=== PATIENT | female | born 1960 | race Caucasian/White ===

== ENCOUNTER 2016-09-05 20:01 | Emergency (ER) | payer OTHER ==
[~2016-09-05] VITALS: Ht 157.5 cm; Wt 87.1 kg
--- NOTE | 2016-09-05 20:25 | ED CARDIAC/CP/PALPITATIONS ---
History of Present Illness General Chief Complaint: Palpitations Stated Complaint: PALPITATIONS Source: patient Exam Limitations: no limitations Vital Signs & Intake/Output Vital Signs & Intake/Output Vital Signs Date Time Temp Pulse Resp B/P Pulse O2 O2 Flow FiO2 Ox Delivery Rate 09/05 2110 101.5 104 20 171/84 98 Room Air Room Air 09/05 2002 101.1 102 18 172/83 94 Room Air Allergies Coded Allergies: NO KNOWN ALLERGIES (09/05/16) Reconcile Medications Oseltamivir Phosphate (Tamiflu) 75 MG CAPSULE 1 CAP PO BID INFLUENZA Oseltamivir Phosphate (Tamiflu) 75 MG CAPSULE 1 CAP PO BID INFLUENZA Triage Note: PT TO TRIAGE WITH C/O PALPITATIONS AND HEADACHE SINCE 6PM. PT HAS BEEN SICK WITH COLD AND CONGESTION x2DAYS, PT TOOK HER COLD MEDS BEFORE SYMPTOMS STARTED. TEMP 101.1 IN TRIAGE. PT DENIES CHEST PAIN, DENIES SOB. [facility] TO [facility] FOR E[facility]. Triage Nurses Notes Reviewed? yes Onset: Abrupt Duration: day(s): (1) Timing: multiple episodes today Quality/Severity: moderate Location: central Activities at Onset: none Associated Symptoms: COUGH, CONGESTION, PALPITATIONS HPI: This is a 56-year-old female presents to the ER for chief complaint of cough, congestion generally not feeling well and noticed that her heart was racing. She still complained of some central chest tightness. Positive productive cough. She didn't realize she had a fever until she got emergency department with the temp is 101. Sick contacts of last few weeks. She is up-to-date day with her flu vaccine. Denies any abdominal pain nausea vomiting or diarrhea. Denies any rash or symptoms. She did not take anything for fever at home today. Past History Travel History Traveled to [place] past 21 day No Medical History Any Pertinent Medical History? see below for history Neurological: migraine Cardiovascular: hypertension Surgical History Surgical History: , TONSILLECTOMY Psychosocial History What is your primary language Peruvian Tobacco Use: Never used Family History Hx Contributory? No Review of Systems Review of Systems Constitutional: Reports: chills, fever, malaise, weakness. EENTM: Reports: no symptoms. Respiratory: Reports: cough, sputum production. Cardiovascular: Reports: palpitations. Denies: chest pain. GI: Denies: abdominal pain, diarrhea, vomiting. Genitourinary: Reports: no symptoms. Musculoskeletal: Reports: no symptoms. Skin: Reports: no symptoms. Neurological/Psychological: Reports: no symptoms. Hematologic/Endocrine: Denies: bruising, bleeding, polyuria, polydipsia. Immunologic/Allergic: Denies: splenectomy. All Other Systems: Reviewed and Negative Physical Exam Physical Exam General Appearance: well developed/nourished, alert, awake Head: atraumatic, normal appearance Eyes: Bilateral: normal appearance, PERRL, EOMI. Ears, Nose, Throat: normal pharynx, normal ENT inspection, hearing grossly normal Neck: normal inspection Respiratory: normal breath sounds Cardiovascular: regular rate/rhythm, MULTIPLE EARLY BEATS Peripheral Pulses: 2+ radial (R), 2+ radial (L) Gastrointestinal: normal bowel sounds, soft, non-tender Extremities: normal inspection, normal capillary refill, normal range of motion Neurologic/Psych: no motor/sensory deficits, awake, alert, oriented x 3 Skin: intact, normal color Core Measures ACS in differential dx? No Severe Sepsis Present: No Septic Shock Present: No Progress Differential Diagnosis: PNEUMONIA, INFLUENZA, ARRHYTHMIA, URI Plan of Care: Orders Procedure Date/time Status RT ED ORDERS 09/05 2037 Active RAPID VIRAL INFLUENZA A 09/05 2035 Complete URINALYSIS 09/05 2035 Complete THYROID STIMULATING HORMONE 09/05 2035 Active TROPONIN LEVEL 09/05 2035 Active FREE T4 09/05 2035 Active COMPREHENSIVE METABOLIC PANEL 09/05 2035 Active CBC WITHOUT DIFFERENTIAL 09/05 2035 Complete EKG 09/05 2004 Active Laboratory Tests 09/05/164: Urine Color YEL, Urine Clarity CLEAR, Urine pH 6.5, Ur Specific [place] <= 1.005 , Urine Protein NEG, Urine Ketones NEG, Urine Nitrite NEG, Urine Bilirubin NEG, Urine Urobilinogen 0.2, Ur Leukocyte Esterase NEG, Ur Microscopic EXAM NOT REQUIRED, Urine Hemoglobin NEG, Urine Glucose NEG 09/05/162035: Anion Gap 10, Estimated GFR 58 L, BUN/Creatinine Ratio 17.0, Glucose 114 H, Calcium 9.3, Total Bilirubin 0.8, AST 22, ALT 35, Alkaline Phosphatase 76, Troponin I 0.02, Total Protein 6.8, Albumin 4.0, Globulin 2.8, Albumin/Globulin Ratio 1.4, TSH Pending, Free T4 0.97, CBC w Diff NO MAN DIFF REQ, RBC 4.74, MCV 87.8, MCH 29.3, RDW 12.7, MPV 8.2, Gran % 80.2 H, Lymphocytes % 9.8 L, Monocytes % 6.9, Eosinophils % 2.9, Basophils % 0.2, Absolute Granulocytes 10.0 H, Absolute Lymphocytes 1.2, Absolute Monocytes 0.9 H, Absolute Eosinophils 0.4 , Absolute Basophils 0, PUBS MCHC 33.4 Microbiology 09/05 2120 NASOPHARYN: Influenza Virus A & B Rapid Smear - COMP INFLUENZA TYPE A Diagnostic Imaging: Viewed by Me: Radiology Read. Discussed w/RAD: Radiology Read. Initial ED EKG: NSR, MULTIPLE PAC'S Comments: PATIENT: TRACEY CARTER PRESENT AGE: 56 PATIENT ACCOUNT NO: [id number] : 61 LOCATION: [facility] ORDERING PHYSICIAN: JULIO CESAR BIGGS MD SERVICE DATE: 09/05/16-2037 EXAM TYPE: RAD - XRY-CHEST XRAY, PA AND LATERAL EXAMINATION: XR CHEST CLINICAL INFORMATION: Cough and fever. Chest tightness. Assess for pneumonia. COMPARISON: None TECHNIQUE: 2 views of the chest were obtained. FINDINGS: The lungs are well expanded. No lobar consolidation. Borderline bronchovascular prominence. No pleural effusion, pulmonary edema, or pneumothorax. No mediastinal widening. No acute osseous abnormalities. IMPRESSION: No evidence of pneumonia. Borderline bronchovascular prominence; this could reflect a degree of small airways inflammation. DICTATED BY: ARIANA MAYERS MD DATE/TIME DICTATED:09/05/162099 CLERK STENOGRAPHER:CHARLEY DATE/TIME TRANSCRIBED:09/05/162099 CONFIDENTIAL, DO NOT COPY WITHOUT APPROPRIATE AUTHORIZATION. <Electronically signed in Other Vendor System> SIGNED BY: ARIANA MAYERS MD 09/05/162105 Departure Departure Time of Disposition: 2210 Disposition: HOME OR SELF CARE Condition: Stable Clinical Impression Primary Impression: Influenza A Referrals: BERNIE VANN MD (PCP/Family) Additional Instructions: TAKE THE TAMIFLU DIRECTED. MOTRIN OR TYLENOL NEEDED FOR PAIN. Departure Forms: Customer Survey General Discharge Information Prescriptions: Current Visit Scripts Oseltamivir Phosphate (Tamiflu) 1 CAP PO BID #9 CAP Oseltamivir Phosphate (Tamiflu) 1 CAP PO BID #9 CAP Critical Care Note Critical Care Note Critical Care Time: non-applicable
--- NOTE | 2016-09-05 21:06 | RADIOLOGY REPORT ---
EXAMINATION: XR CHEST CLINICAL INFORMATION: Cough and fever. Chest tightness. Assess for pneumonia. COMPARISON: None TECHNIQUE: 2 views of the chest were obtained. FINDINGS: The lungs are well expanded. No lobar consolidation. Borderline bronchovascular prominence. No pleural effusion, pulmonary edema, or pneumothorax. No mediastinal widening. No acute osseous abnormalities. IMPRESSION: No evidence of pneumonia. Borderline bronchovascular prominence; this could reflect a degree of small airways inflammation.
[2016-09-05 21:07] LABS: ABSOLUTE BASOPHIL COUNT 0 /CUMM (0.0-0.2); ABSOLUTE EOSINOPHIL COUNT 0.4 /CUMM (0.0-0.7); ABSOLUTE LYMPH COUNT 1.2 /CUMM (1.2-3.4); ABSOLUTE MONOCYTE COUNT 0.9 /CUMM (0.10-0.60); BASOPHIL % 0.2 % (0.0-2.0); EOSINOPHIL % 2.9 % (0-5); GRANULOCYTE % 80.2 % (42.2-75.2); HEMATOCRIT 41.6 % (37-47); MEAN CORPUSCULAR HGB 29.3 PG (27.0-31.0); MEAN CORPUSCULAR HGB CONC 33.4 G/DL (33.0-37.0); MEAN CORPUSCULAR VOLUME 87.8 FL (81.0-99.0); MEAN PLATELET VOLUME 8.2 FL (7.4-10.4); PLATELET COUNT 242 /CUMM (130-400); RBC DISTRIBUTION WIDTH 12.7 % (11.5-14.5); RED BLOOD CELL CT 4.74 /CUMM (4.20-5.40); WHITE BLOOD CELL COUNT 12.5 /CUMM (4.8-10.8)
[2016-09-05] MEDS ORDERED: TAMIFLU75 M1 PO ×2 (21:56→22:04)
[2016-09-05 22:12] VITALS: BP 168/82
== END 2016-09-05 22:13 ==
LOC: ERH 20:01
PROVIDERS: Emergency Medicine
DX: J10.1 Influenza due to other identified influenza virus with other respiratory manifestations (principal); R07.89 Other chest pain
CPT/HCPCS: 1263; 81003; 87804; 87804-59; 93005; 93010; 96374; J1885